=== PATIENT | male | born 1995 | race Caucasian/White ===

== ENCOUNTER 2023-05-08 16:05 | Emergency (ER) | payer OTHER ==
[~2023-05-08] VITALS: Ht 175.3 cm; Wt 72.6 kg
[2023-05-08] MEDS ORDERED: LORAZEPAM 2 MG/ML 1 ML VIAL ONE (16:21)
[2023-05-08] MEDS ORDERED: LEVETIRACETAM 500 MG/5 ML SD VIAL IV ONE (16:22)
[2023-05-08 16:52] LABS: BASOPHILS # (AUTO) 0.08 K/uL (0.00-0.20); BASOPHILS % (AUTO) 0.6 % (0.0-5.0); EOSINOPHILS # (AUTO) 0.04 K/uL (0.00-0.70); EOSINOPHILS % (AUTO) 0.3 % (0.0-8.0); HEMATOCRIT 54.5 % (42-54); IMMATURE GRANULOCYTE ABSOLUTE 0.06 K/uL (0-1); LYMPHOCYTES # (AUTO) 2.5 K/uL (1.0-4.8); LYMPHOCYTES % (AUTO) 16.9 % (21.0-51.0); MEAN CORPUSCULAR HEMOGLOBIN 32.5 pg (27.0-33.0); MEAN CORPUSCULAR HGB CONC 32.7 g/dL (32.0-36.0); MEAN CORPUSCULAR VOLUME 99.5 fL (79-99); MONOCYTES # (AUTO) 1.2 K/uL (0.1-1.0); MONOCYTES % (AUTO) 8.4 % (3.0-13.0); NEUTROPHILS # (AUTO) 10.7 K/uL (1.8-7.7); NEUTROPHILS % (AUTO) 73.4 % (40.0-77.0); PLATELET COUNT (AUTO) 317 K/uL (130-400); RED BLOOD CELL COUNT(AUTO) 5.48 MIL/uL (4.50-6.20); RED CELL DISTRIBUTION WIDTH 12.3 % (11.0-15.5); WHITE BLOOD COUNT (AUTO) 14.5 K/uL (4.8-10.8)
[2023-05-08 16:58] LABS: APPEARANCE,URINE CLEAR (CLEAR); BILIRUBIN,URINE NEGATIVE (NEGATIVE); COLOR,URINE LIGHT-YELLOW (YELLOW); GLUCOSE, URINE (UA) NEGATIVE (NEGATIVE); KETONES,URINE 5 mg/dL (NEGATIVE); LEUKOCYTE ESTERASE ,URINE NEGATIVE Leu/uL (NEGATIVE); NITRATE,URINE NEGATIVE (NEGATIVE); PROTEIN,URINE 30 mg/dL (NEGATIVE); UROBILINOGEN,URINE 0.2 mg/dL (0.2-1.0)
[2023-05-08 17:00] LABS: CREATININE 1.6 mg/dL (0.5-1.5); POTASSIUM 3.7 mmol/L (3.5-5.1)
[2023-05-08] MEDS ORDERED: ZOSYN 3.375GM+NS 50ML 50 ML IVPB ONE (17:00)
[2023-05-08] MEDS ORDERED: 0.9%NACL 1000ML 2,121 ML IV ONE (17:00)
[2023-05-08] MEDS ORDERED: ZOSYN 3.375GM +NS 50ML IVPB ONE (17:00)
[2023-05-08 17:01] LABS: AMPHET/METH SCREEN,URINE NEGATIVE (NEGATIVE); BARBITURATE SCREEN, URINE NEGATIVE (NEGATIVE); BENZODIAZEPINES SCREEN,URINE NEGATIVE (NEGATIVE); CANNABINOID SCREEN,URINE POSITIVE (NEGATIVE); COCAINE SCREEN,URINE NEGATIVE (NEGATIVE); OPIATE SCREEN,URINE NEGATIVE (NEGATIVE); PHENCYCLIDINE SCREEN,URINE NEGATIVE (NEGATIVE)
[2023-05-08 17:05] LABS: BILIRUBIN,TOTAL 0.8 mg/dL (0.2-1.0); TOTAL PROTEIN, SERUM 7.3 g/dL (6.0-8.3)
[2023-05-08 17:15] LABS: ADD UA MICROSCOPIC YES
[2023-05-08 17:16] LABS: BACTERIA,URINE RARE /HPF (None Seen); MUCUS,URINE RARE LPF (None Seen); RBC,URINE 0-1 /HPF (0-1); SQUAMOUS EPITHELIAL CELL,UR RARE /HPF (0-2); UNCLASSIFIED CRYSTAL 1 /HPF (None Seen); WBC,URINE 0-1 /HPF (0-1); YEAST,URINE BUDDING FEW /HPF (None Seen)
[2023-05-08] MEDS ORDERED: 0.9%NACL 1000ML 1,000 ML IV ONE (19:00)
[2023-05-08 20:31] LABS: ALCOHOL, BLOOD < 3 mg/dL (0-10)
[2023-05-08] MEDS ORDERED: LACTULOSE 20 GM/30 ML UDCUP PO ONE (21:00)
[2023-05-08 22:24] VITALS: BP 118/56; PULSE 84; RESP 18; O2SAT 98
== END 2023-05-08 22:59 | disposition short-term general hospital (02) ==
LOC: EDH 16:05
DX: G40.909 Epilepsy, unspecified, not intractable, without status epilepticus (principal); R74.02 Elevation of levels of lactic acid dehydrogenase [LDH]; E72.20 Disorder of urea cycle metabolism, unspecified; F19.20 Other psychoactive substance dependence, uncomplicated; F17.200 Nicotine dependence, unspecified, uncomplicated
CPT/HCPCS: 99291; 96365; 70450; 71045; 96366; 96375; 82550; 83735; 80053; 80305; 82140; 85025; 87040 ×2; 83605 ×2; 36415; 96368; 93005; 81001; J1953; J7030; J2060; J2543